=== PATIENT | female | born 2000 | race Caucasian/White ===

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

== ENCOUNTER 2018-10-01 18:58 | Emergency (ER) | payer BC, MEDICAID ==
[~2018-10-01] VITALS: Ht 152.4 cm; Wt 96.4 kg
[~2018-10-01 18:58] MED LIST changes: +IBU800 M1 PO
[2018-10-01 19:03] VITALS: BP 119/69; PULSE 113; TEMP 99.5
== END 2018-10-01 21:25 | disposition left against medical advice (07) ==
LOC: COL.ER 18:58
DX: R05 Cough (principal)

== ENCOUNTER 2019-01-22 11:49 | Outpatient (CLI) | payer BC, MEDICAID ==
[~2019-01-22] VITALS: Ht 154.9 cm; Wt 93.2 kg
[2019-01-22 12:25] VITALS: BP 111/57; PULSE 98
[2019-01-22] MEDS ORDERED: PRENATAL MVI (12:31)
--- NOTE | 2019-01-22 12:40 | NUR ---
1200: Patient ambulatory onto unit with report of large gush of fluid at 0600. Patient states she woke up to her bed being wet. Denies any leaking of fluid after that. Reports good movement, denies cramping/contractions. EFMs on, VS taken. AmniTrace negative. SVE closed/thick/high. 1225: on unit, reviews strip. EFMs off. 1240: Discharge instructions given to patient, return precautions reviewed. Verbalized understanding. Patient ambulatory off of unit at this time.
== END 2019-01-22 12:40 | disposition home or self-care (01) ==
LOC: LDRO 11:49 → LDR 12:00 → LDRO 12:40
DX: Z34.83 Encounter for supervision of other normal pregnancy, third trimester (principal); Z3A.30 30 weeks gestation of pregnancy
CPT/HCPCS: OP

== ENCOUNTER 2019-03-16 16:41 | Outpatient (CLI) | payer BC, MEDICAID ==
[~2019-03-16] VITALS: Ht 154.9 cm; Wt 94.1 kg
[~2019-03-16 16:41] MED LIST changes: +PRENATAL MVI
[2019-03-16 16:53] VITALS: BP 113/71; PULSE 96; TEMP 98.1
[2019-03-16 17:15] VITALS: BP 113/71; PULSE 96; TEMP 98.1
[2019-03-16 17:40] VITALS: BP 120/69; PULSE 87
== END 2019-03-16 17:45 | disposition home or self-care (01) ==
LOC: LDRO 16:41 → LDR 17:38 → LDRO 17:45 → LDR 17:45
DX: O42.92 Full-term premature rupture of membranes, unspecified as to length of time between rupture and onset of labor (principal); Z3A.37 37 weeks gestation of pregnancy
CPT/HCPCS: OP

== ENCOUNTER 2019-03-20 07:27 | Inpatient (IN) | payer BC ==
[~2019-03-20] VITALS: Ht 154.9 cm; Wt 94.5 kg
[2019-03-20] MEDS ORDERED: PRENATAL (18:09)
[2019-03-20] MEDS ORDERED: ZOFRAN ODT4 MG PO (18:09)
[2019-03-20] MEDS ORDERED: TYLENOL 500MG500 MG PO (18:29)
[2019-03-28] VITALS (35 sets, daily range): BP systolic 84–128; BP diastolic 45–81; PULSE 83–133; TEMP 98.3–98.6
--- NOTE | 2019-03-28 13:15 | NUR ---
1315- Pt arrives on unit ambulatory for scheduled induction. Pt, spouse, and mother oriented to room. Pt into bathroom to change into gown, void. 1321- Pt into bed, EFM and TOCO on and tracing. VSS. Assessment completed. 1342- IV started without difficulty, labs obtained, LR bolus initiated. Consent forms explained and signed.
[2019-03-28 14:08] LABS: BASO % 0.1 % (0.0-2.0); EOS # 0.1 (0.0-0.7); EOS % 1.4 % (0-4.0); GRAN # 6.7 (1.4-6.5); GRAN % 70.7 % (42.2-75.2); HEMOGLOBIN 11.1 g/dl (12.0-15.0); LYMPH # 1.9 (1.2-3.4); LYMPH % 20.1 % (20.0-51.0); MEAN CELL VOLUME 87 fl (80.0-95.0); MEAN CORPUSCULAR HEMOGLOBIN 29 pg (26.0-32.0); MEAN CORPUSCULAR HGB CONC 33 g/dl (33.0-37.0); MEAN PLATELET VOLUME 9.5 fl (7.4-10.4); MONO # 0.7 (0.1-0.6); MONO % 7.4 % (1.7-9.3); PLATELET COUNT 288 K/mm3 (130-400); RED BLOOD COUNT 3.88 M/mm3 (4.10-5.30); REDCELL DISTRIBUTION WIDTH-CV 13.1 % (11.5-14.5)
[2019-03-28 14:09] LABS: HEMATOCRIT 33.6 % (35.0-45.0)
--- NOTE | 2019-03-28 16:00 | NUR ---
1541- JET Oliva at bedside for epidural placement. Pt assisted to sitting on side of bed. 1542- O2 sat monitor on and tracing. FHR not tracing well due to maternal position. 1548- Test dose, see anesthesia. Pt tolerated well. 1555- Pt assisted to semi-fowlers with WL. EFM and TOCO adjusted and tracing.
--- NOTE | 2019-03-28 16:30 | NUR ---
1610- Pt complains of sharp pain on right side with UCs. Pt repositioned to RL. Oliva, REFRESH TECHNICIAN called to bedside, epidural dosed, See anesthesia record. 1625- Pt denies pain with UCs.
--- NOTE | 2019-03-28 17:48 | NUR ---
1743- Dr Briceño at bedside. Pt and room prepped for delivery. Huseyin Nursery RN at bedside. 1747- Pt pushes well with UC. Spontaneous delivery of viable female . Infant placed on mother's abd, dried and stimulated, tended to by nursery RN. Pitocin off. Cord clamped and cut. Cord blood obtained. 1751- Spontaneous delivery of placenta. Pitocin restarted at 333 per MD. Fundus massaged to firm by . Perineum found to be intact. Pericare completed and ice pack on. Pt tolerated well.
--- NOTE | 2019-03-28 20:30 | NUR ---
Pt able to lift and hold each leg off of bed for 5 seconds. Pt positioned to sitting on edge. Epidural catheter removed. Tip blue, smooth, and intact. Pt able to ambulate to bathroom independently. Pt able to void 200 mL. Pericare explained and provided. New gown on. Mesh panties, peripad, and ice pack applied. Pt ambulated to room 207 with belongings and spouse.
[2019-03-29 01:30] VITALS: BP 110/65; PULSE 85; TEMP 98.7
[2019-03-29 05:42] VITALS: BP 109/61; BP 110/69; PULSE 77; PULSE 92; TEMP 98.5; TEMP 98.7
[2019-03-29 07:00] VITALS: BP 108/76; PULSE 86; TEMP 98.1
[2019-03-29] MEDS ORDERED: IBU800 M1 PO (07:41)
[2019-03-29 15:40] VITALS: BP 116/74; PULSE 85; TEMP 97.8
== END 2019-03-29 19:30 | disposition home or self-care (01) | DRG 807 ==
LOC: LDR 03-28 10:40 → OB 03-28 20:40 → LDR 03-30 07:26
PROVIDERS: ADMIT Student in an Organized Health Care Education/Training Program
PROC: 10E0XZZ Delivery of Products of Conception, External Approach (ICD-10-PCS; principal; 2019-03-28)
PROC: 10907ZC Drainage of Amniotic Fluid, Therapeutic from Products of Conception, Via Natural or Artificial Opening (ICD-10-PCS; 2019-03-28)
PROC: 3E033VJ Introduction of Other Hormone into Peripheral Vein, Percutaneous Approach (ICD-10-PCS; 2019-03-28)
DX: O99.214 Obesity complicating childbirth (principal); Z37.0 Single live birth; O99.334 Smoking (tobacco) complicating childbirth; Z3A.39 39 weeks gestation of pregnancy; Z23 Encounter for immunization
CPT/HCPCS: OP; J2590; J2795; J7120

== ENCOUNTER 2019-03-20 18:04 | Outpatient (CLI) | payer BC, MEDICAID ==
[~2019-03-20] VITALS: Ht 154.9 cm; Wt 93.6 kg
[2019-03-20 18:05] VITALS: BP 134/77; PULSE 117; TEMP 98.2
[2019-03-20] MEDS ORDERED: PRENATAL (18:09)
[2019-03-20] MEDS ORDERED: ZOFRAN ODT4 MG PO (18:09)
--- NOTE | 2019-03-20 18:10 | NUR ---
1810-G4L2 38.3 WEEK GBS neg Patient of Dr. Aguileraures ambulatory to LR 6 with complaints of decreased movment and sharp back pain starting at Noon. Patient denies leaking of fluid or vaginal bleeding. Denies contractions. Assisted into gown and onto EFM. VSS, see flow record. 1814-SVE /-3, ASHISH. Assessment complete and reported off to Mikael Panda RN who assumes care of patient.
[2019-03-20 18:24] VITALS: BP 134/77; PULSE 117; TEMP 98.2
[2019-03-20] MEDS ORDERED: TYLENOL 500MG500 MG PO (18:29)
[2019-03-20 19:15] VITALS: BP 109/58; PULSE 90
[2019-03-20 20:08] VITALS: BP 109/65; PULSE 96
== END 2019-03-20 20:35 | disposition home or self-care (01) ==
LOC: LDRO 18:04 → LDR 18:10 → LDRO 20:35
DX: O36.8130 Decreased fetal movements, third trimester, not applicable or unspecified (principal); O99.89 Other specified diseases and conditions complicating pregnancy, childbirth and the puerperium; M54.9 Dorsalgia, unspecified; Z3A.38 38 weeks gestation of pregnancy
CPT/HCPCS: OP

== ENCOUNTER 2019-03-25 18:05 | Outpatient (CLI) | payer BC, MEDICAID ==
[~2019-03-25] VITALS: Ht 154.9 cm; Wt 93.6 kg
[~2019-03-25 18:05] MED LIST changes: +PRENATAL; +TYLENOL 500MG500 MG PO; +ZOFRAN ODT4 MG PO
--- NOTE | 2019-03-25 18:05 | NUR ---
1815 G4L2 39.1 WEEK GEST TO LR4 WITH C/O NOT FEELING THE BABY MOVE IN TWO DAYS. EFM AND MOVEMENT FELT AND SEEN IMMEDIATELY. STATES IS HAVING NO CONTRACTIONS. ADM ASSESSMENT COMPLETED. PT STATES HAS ALWAYS BEEN INDUCED AT 39 WEEKS AND THIS TIME IS UNABLE TO BE INDUCED UNTIL 40 WEEKS. WANTS TO KNOW IF I CAN "SWEEP" HER MEMBRANES. INSTUCTED TO KEEP NEXT DRS APPOINTMENT IF ONE SCHEDULED OR INDUCTION APPOINTMENT.
[2019-03-25 18:20] VITALS: BP 106/58; PULSE 115; TEMP 97.9
[2019-03-25 18:33] VITALS: BP 106/58; PULSE 115; TEMP 97.9
--- NOTE | 2019-03-25 18:45 | NUR ---
184 DR HINDS NOTIFIED OF PT AND REPORT GIVEN. ORDERS TO SEND HOME 1899 HOME WITH DISCHARGE INSTRUCTIONS.
== END 2019-03-25 19:00 | disposition home or self-care (01) ==
LOC: LDRO 18:05 → LDR 18:27 → LDRO 19:00
DX: O36.8130 Decreased fetal movements, third trimester, not applicable or unspecified (principal); Z3A.39 39 weeks gestation of pregnancy
CPT/HCPCS: OP

== ENCOUNTER → 2019-03-30 | Outpatient (CLI) | payer BC ==
--- NOTE | 2019-03-30 10:55 | NUR ---
Pt, Debora Zaman, presents for outpatient consult with two day old baby girl, Shaunna Zaman, because she was not been able to Shaunna to wake for feedings in the night despite trying 3 times. She also has sore nipples from shallow latching. Shaunna was born on 03[birth year] by and is Debora's third baby, but is her first breastfed baby. weight was 6#6.8oz (2915 gms). Discharge weight is reported to be 6#3oz. Today Shaunna weighs 6#0.1oz (2726 gms) for a 6% loss from . Pt reports Shaunna has had 2 meconium stools and 3 voids since midnight. She also had a long stretch, [id number], where pt could not get Shaunna to wake enough to latch. At 0600 she nursed about 10 min on one breast and at about 0800 she nursed on each breast for about 10 min. Nursing has been painful as well. Bruises on nipples bilaterally, with soreness greater on the L than R. Abrasions noted on the face of each nipple as well. Breast shells provided to help protect and hopefully matthew nipples better. Pt instructed on pre-stimulating her flat nipple and helping to get Shaunna's chin down with and even adjust after latching. Pt states this maked the latch more comfortable. Pt denies feeling milk supply increase. Occassional swallows are noted, and when Shaunna's effort wanes, pt is instructed on breast compression that results if a few more swallows. After nursing bilaterally Shaunna had a weight gain of 24 gms (0.9oz). She spit up just a small amount that looked like transition milk. POC: Continue on demand or q 3 hours, waking as neccessary. Waking suggestions provided. Use latch suggestions noted above. F/U: Shaunna has an appointment with Dr. George tomorrow. Pt is aware of support group with WIC and at this facility as well. Questions invited and answered.
== END ==
LOC: OLC 10:25
DX: Z39.1 Encounter for care and examination of lactating mother (principal); Z71.89 Other specified counseling

== ENCOUNTER 2020-03-08 14:05 | Outpatient (CLI) | payer BC ==
[~2020-03-08] VITALS: Ht 154.9 cm; Wt 104.5 kg
--- NOTE | 2020-03-08 13:50 | NUR ---
Patient ambulatory to unit accompanied by spouse. Patient states she is feeling abdominal pressure and occasional vaginal pressure and occasional contractions but not consistent. Patient denies any leaking of fluid, vaginal bleeding and states baby has not been as active. FHR and contractions monitors placed and explained. SVE 2. Assessment completed. Dr. Briceño here at 1415 and reviews FHR and contractions on monitors. Report given on patient complaint, vital signs and SVE reported. Orders received for labor check.
[2020-03-08 14:08] VITALS: BP 117/69; PULSE 111; TEMP 98.3
[2020-03-08 14:30] VITALS: PULSE 103
--- NOTE | 2020-03-08 15:00 | NUR ---
Patient resting in bed socializing with her . SVE and no change noted from first SVE. Patient states she really wants to have this baby today. Labor precautions reviewed with patient.
[2020-03-08 15:07] VITALS: BP 112/74; PULSE 89
--- NOTE | 2020-03-08 15:10 | NUR ---
Patient off monitors. Labor precautions reviewed with patient and she verbalizes understanding. Off unit at 1519
== END 2020-03-08 15:15 | disposition home or self-care (01) ==
LOC: LDRO 14:05
DX: O26.893 Other specified pregnancy related conditions, third trimester (principal); Z3A.37 37 weeks gestation of pregnancy

== ENCOUNTER 2020-03-13 02:53 | Inpatient (IN) | payer BC ==
[2020-03-13] VITALS (39 sets, daily range): BP systolic 98–133; BP diastolic 50–83; PULSE 81–112; TEMP 97.7–98.8
[~2020-03-13] VITALS: Ht 154.9 cm; Wt 105.9 kg
--- NOTE | 2020-03-13 02:35 | NUR ---
0235- Pt. ambulatory to the unit by herself, stated was in the car waiting to see if she stayed or not. Stated decreased movement since chest and back pain started an hour and half ago. Stated she has some chest pain that has started to radiate to her back. Denies LOF, and states feel occasional contractions. 0241- EFM and TOCO on and tracing. Vitals taken and assessment completed. SVE 5-6/80/-2. Patient states that since coming onto unit and laying more flat she has had no more chest pain and just a little back pain occasionally but it has gotten better since laying more flat and on her side.
[2020-03-13 04:55] LABS: BASO % 0.2 % (0.0-2.0); EOS # 0.1 (0.0-0.7); EOS % 1.1 % (0-4.0); GRAN # 9.1 (1.4-6.5); GRAN % 73.7 % (42.2-75.2); LYMPH # 2.1 (1.2-3.4); LYMPH % 16.9 % (20.0-51.0); MEAN CELL VOLUME 84 fl (80.0-100.0); MEAN CORPUSCULAR HEMOGLOBIN 27 pg (27.0-31.0); MEAN CORPUSCULAR HGB CONC 32 g/dl (33.0-37.0); MONO % 7.9 % (1.7-9.3); PLATELET COUNT 289 K/mm3 (130-400); RED BLOOD COUNT 4.03 M/mm3 (4.10-5.30); REDCELL DISTRIBUTION WIDTH-CV 13.6 % (11.5-14.5)
[2020-03-13 04:57] LABS: HEMATOCRIT 33.9 % (37.0-47.0)
--- NOTE | 2020-03-13 05:46 | NUR ---
OFF MONITORS AT THIS TIME PER PT REQUEST TO AMBULATE IN THE ROOM.
--- NOTE | 2020-03-13 07:00 | NUR ---
0620- Report received, this RN assumes care of Pt. Pt sitting in rocking chair for comfort. 0639- Pt back in bed, EFM and TOCO on and tracing. VSS. Pt states she was not tricai at all while sitting up.
--- NOTE | 2020-03-13 07:30 | NUR ---
0730- Dr Briceño at nurses station. Reviews strip. VORB to augment with Pitocin per policy.
--- NOTE | 2020-03-13 12:00 | NUR ---
1140- Pt assisted onto birthing ball. EFM adjusted, FHR tracing intermittently. 1155- FHR not tracing well. RN at bedside adjusting. 1205- Pt assisted back into bed, FSE placed by this RN without difficulty, tracing well.
--- NOTE | 2020-03-13 13:00 | NUR ---
1248- SVE by , . Pt encouraged to breathe through UCs, RN remains at bedside. MD to nurses station. Pt not coping with UCs well. 1256- SVE by -. Pt and room prepped for delivery. Pt yelling in pain with UCs. Blas, Nursery RN at bedside. 1300- Pt pushes with UC, of viable male . Placed on mother's abd, tended to by Nursery RN. Pitocin off. Cord clamped and cut. Cord blood obtained. 1304- Spontaneous delivery of placenta. Pitocin restarted at 333ml/hr. Fundus massaged to firm by . Pericare completed, ice pack and clean chux under Pt.
--- NOTE | 2020-03-13 13:15 | NUR ---
1313- Large amount of vaginal bleeding with massage. Many small clots expressed. Fundus firms with massage. 1316- Methergine given per MD MANUEL.
--- NOTE | 2020-03-13 15:10 | NUR ---
1510- Pt ambulates to bathroom independently, voids without difficulty, 150mls. Pericare explained and performed. Pt requests to take shower. Bathroom set up and precautions given. Pt showers without difficulty. 1530- Pt ambulates to nursery independently to watch baby bath. Tolerates well.
[2020-03-14 02:00] VITALS: BP 117/62; PULSE 78; TEMP 98.3
[2020-03-14 07:00] VITALS: BP 115/65; PULSE 83; TEMP 98.3
[2020-03-14] MEDS ORDERED: IBU800 M1 PO (07:33)
[2020-03-14] MEDS ORDERED: PERCOCET 325 MG1 TA2 PO (07:34)
--- NOTE | 2020-03-14 09:02 | NUR ---
Initial visit; Parents thanked Forensic Dna Analyst for offering congratulations and God's blessings for the of their son. Forensic Dna Analyst thanked family for choosing [facility].
[2020-03-14 12:20] VITALS: BP 104/60; PULSE 86; TEMP 98
--- NOTE | 2020-03-14 14:10 | NUR ---
Discharge instructions reviewed with patient and . Script for percocet given and explained. Patient verbalizes understanding of instructions. teaching verbally reviewed with patient. Patient verbalizes understanding. Escorted off unit at 1420.
== END 2020-03-14 14:20 | disposition home or self-care (01) | DRG 807 ==
LOC: LDRO 02:53 → LDR 03:28 → OB 15:15
PROVIDERS: Obstetrics & Gynecology; ADMIT Student in an Organized Health Care Education/Training Program
PROC: 10E0XZZ Delivery of Products of Conception, External Approach (ICD-10-PCS; principal; 2020-03-13)
PROC: 10907ZC Drainage of Amniotic Fluid, Therapeutic from Products of Conception, Via Natural or Artificial Opening (ICD-10-PCS; 2020-03-13)
DX: O99.214 Obesity complicating childbirth (principal); Z37.0 Single live birth; E66.9 Obesity, unspecified; F90.9 Attention-deficit hyperactivity disorder, unspecified type; O70.0 First degree perineal laceration during delivery; O99.334 Smoking (tobacco) complicating childbirth; Z3A.38 38 weeks gestation of pregnancy; O72.1 Other immediate postpartum hemorrhage
CPT/HCPCS: J2210; J2405; J2590; J7120

== ENCOUNTER 2020-05-19 06:40 | Emergency (ER) | payer BC ==
[~2020-05-19] VITALS: Ht 152.4 cm; Wt 97.7 kg
[~2020-05-19 06:40] MED LIST changes: +PERCOCET 325 MG1 TA2 PO
[2020-05-19 06:45] VITALS: TEMP 98.5
[2020-05-19 07:19] LABS: BASO # 0.1 (0.0-0.2); BASO % 0.6 % (0.0-2.0); EOS # 0.2 (0.0-0.7); EOS % 2.4 % (0-4.0); GRAN # 4.2 (1.4-6.5); GRAN % 47.8 % (42.2-75.2); HEMATOCRIT 39.1 % (37.0-47.0); HEMOGLOBIN 12.5 g/dl (12.5-16.0); LYMPH # 3.7 (1.2-3.4); LYMPH % 42.2 % (20.0-51.0); MEAN CELL VOLUME 82 fl (80.0-100.0); MEAN CORPUSCULAR HEMOGLOBIN 26 pg (27.0-31.0); MEAN CORPUSCULAR HGB CONC 32 g/dl (33.0-37.0); MONO # 0.6 (0.1-0.6); MONO % 6.8 % (1.7-9.3); PLATELET COUNT 395 K/mm3 (130-400); RED BLOOD COUNT 4.78 M/mm3 (4.10-5.30); REDCELL DISTRIBUTION WIDTH-CV 13.4 % (11.5-14.5)
[2020-05-19] MEDS ORDERED: NORA-BE0.35 MG PO (07:22)
[2020-05-19 07:28] LABS: ALBUMIN 4.5 gm/dL (3.5-5.0); BILIRUBIN,TOTAL 0.3 mg/dL (0.0-1.0); CALCIUM 9.6 mg/dL (8.4-10.2); CREATININE, serum 0.88 (0.52-1.25); POTASSIUM 3.7 mmol/L (3.4-5.0); TOTAL PROTEIN 7.6 gm/dL (6.4-8.2)
[2020-05-19] MEDS ORDERED: NORCO 325 MG-51 TAB PO ×2 (10:08)
[2020-05-19 10:38] LABS: COLLECTION METHOD CLEAN CATCH
[2020-05-19 10:51] LABS: MUCOUS Present /lpf; PH 6 (5-8); URINE APPEARANCE Hazy; URINE BACTERIA Rare /hpf; URINE BILIRUBIN Negative (NEGATIVE); URINE BLOOD 2+ (NEGATIVE); URINE COLOR Straw; URINE GLUCOSE Negative (NEGATIVE); URINE KETONE Negative (NEGATIVE); URINE LEUKOCYTE ESTERASE Negative (NEGATIVE); URINE NITRATE Negative (NEGATIVE); URINE PROTEIN(semi-quant) Negative (NEGATIVE); URINE RBC 0-2 /hpf; URINE UROBILINOGEN Negative (NEGATIVE)
[2020-05-19 10:55] VITALS: BP 111/77; PULSE 71
== END 2020-05-19 10:55 | disposition home or self-care (01) ==
LOC: COL.ER 06:40
PROVIDERS: Emergency Medicine
DX: K80.70 Calculus of gallbladder and bile duct without cholecystitis without obstruction (principal); Z32.02 Encounter for pregnancy test, result negative
CPT/HCPCS: J2270; J2405; J7120

== ENCOUNTER 2020-05-21 10:42 | Day surgery (SDC) | payer BC ==
[~2020-05-21] VITALS: Ht 152.4 cm; Wt 98.8 kg
[~2020-05-21 10:42] MED LIST changes: +NORA-BE0.35 MG PO; +NORCO 325 MG-51 TAB PO
[2020-05-21 11:57] VITALS: BP 114/58; PULSE 75; TEMP 97.4
[2020-05-21] MEDS ORDERED: ZOLOFT 50MG50 MG PO (12:01)
[2020-05-21 14:02] VITALS: BP 115/79; PULSE 75; TEMP 97.7
--- NOTE | 2020-05-21 14:02 | NUR ---
Patient came back via cart to [facility] bay 4. Alert and oriented. Stacey HAN at bedside. Placed on monitors, vital signs stable. Denies nausea, states pain is 5/10 gas pain to shoulder and chest. Patient requesting applejuice at this time. Patient on the phone with family memebers. Call fagan within reach will continue to monitor.
[2020-05-21 14:15] VITALS: BP 123/76; PULSE 74
--- NOTE | 2020-05-21 14:15 | NUR ---
Patient tolerating drink without difficulty. Vital signs stable. Patient requesting pudding. Mother now at bedside. WIll continue to monitor.
[2020-05-21 14:30] VITALS: BP 135/72; PULSE 68
[2020-05-21 14:34] VITALS: BP 119/70; PULSE 75
--- NOTE | 2020-05-21 14:45 | NUR ---
Patient states she needs to use restroom, ambulated to bathroom with one assist. Urinated without difficulty. Patient states she would like to go home at this time. Pain medication given per orders. IV removed, intact. Patient to get dressed at this time. Will continue to monitor.
--- NOTE | 2020-05-21 14:57 | NUR ---
Discharge instructions reviewed with patient and mother. All questions answered. Follow up appointment given. Patient brought down to lobby via wheel chair. Mother to drive patient home.
--- NOTE | 2020-05-21 15:15 | NUR ---
Belongings found in patient room. Patient called, will come back to patient entrance and hand picker. Belongings labeled with sticker, left at patient entrance.
== END 2020-05-21 15:05 | disposition home or self-care (01) ==
LOC: SDCO 10:42
DX: K80.10 Calculus of gallbladder with chronic cholecystitis without obstruction (principal); E66.9 Obesity, unspecified; F17.210 Nicotine dependence, cigarettes, uncomplicated; Z79.899 Other long term (current) drug therapy
CPT/HCPCS: J2405; J2704; J3010; J7120

== ENCOUNTER 2021-06-16 22:17 | Outpatient (CLI) | payer OTHER, MEDICAID ==
[~2021-06-16] VITALS: Ht 154.9 cm; Wt 105.7 kg
[~2021-06-16 22:17] MED LIST changes: +ZOLOFT 50MG50 MG PO
--- NOTE | 2021-06-16 22:47 | NUR ---
2225: PT. AMBULATORY TO UNIT FOR C/O OF DECREASED MOVEMENT. UPON ARRIVAL, ORIENTED TO LR3, CLEAN GOWN ON, EFM/TOCO APPLIED, VS OBTAINED, ASSESSMENTS COMPLETED. QUESTIONS INVITED AND ASKED. DISCUSSED POC AND WILL CONT TO MONITOR
[2021-06-16] MEDS ORDERED: TYLENOL 500MG500 MG PO (22:54)
[2021-06-16 23:00] VITALS: BP 124/80; PULSE 115; TEMP 99.5
[2021-06-16 23:15] VITALS: PULSE 107
--- NOTE | 2021-06-16 23:29 | NUR ---
FHT 2300: BROKEN STRIP NOTED; RN AT TO ADJUST EFM 2315: BROKEN STRIP NOTED
--- NOTE | 2021-06-16 23:30 | NUR ---
RN GAVE REPORT TO GUILLE RAMIREZ AT 4755. CARE RELINQUISHED AT THIS TIME
[2021-06-16 23:45] VITALS: PULSE 110
--- NOTE | 2021-06-17 00:26 | NUR ---
DISMISSED AMBULATORY IN STABLE CONDITION
--- NOTE | 2021-06-17 00:27 | NUR ---
DISCHARGE INSTRUCTIONS GIVEN, WITH EARLY LABOR SIGNS, AND DECREASED MOVEMENT INSTRUCTIONS REVIEWED, VOICES GOOD UNDERSTANDING
--- NOTE | 2021-06-17 00:31 | NUR ---
COVID SWAB RESULTS NEGATIVE, EFM OFF AT THIS TIME
== END 2021-06-17 00:23 | disposition home or self-care (01) ==
LOC: LDRO 22:17 → LDR 22:25 → LDRO 06-17 00:23
DX: O36.8190 Decreased fetal movements, unspecified trimester, not applicable or unspecified (principal); Z3A.00 Weeks of gestation of pregnancy not specified
CPT/HCPCS: OP

== ENCOUNTER 2021-07-10 11:11 | Outpatient (CLI) | payer OTHER, MEDICAID ==
[~2021-07-10] VITALS: Ht 152.4 cm; Wt 105.0 kg
[2021-07-10 11:30] VITALS: BP 108/69; PULSE 112; TEMP 98.2
--- NOTE | 2021-07-10 11:30 | NUR ---
1120- Pt arrives on unit ambulatory for labor check. Pt complains of intermittent, irregular cramping and centeral upper gastric pain. Pt changes into gown. 1122- Pt into bed, EFM and TOCO on and tracing. VSS. Pt denies VB or contractions. Pt had called unit last night thinking water may have broke. After monitoring at home she had no additional leakage. +FM per Pt and heard on monitor by this RN. Assessments completed. 1142- Amniotrace negative. SVE /3 which is unchanged from last office visit on 10/06/2020.
[2021-07-10] MEDS ORDERED: PRENATAL TABLET PO (11:34)
[2021-07-10] MEDS ORDERED: MONISTAT VG (11:35)
[2021-07-10] MEDS ORDERED: PROAIR DIGIHAL90 MCG (11:35)
[2021-07-10 11:55] VITALS: BP 106/62; PULSE 109
--- NOTE | 2021-07-10 11:55 | NUR ---
1155- EFM and TOOC off. Discharge paperwork given and explained. Pt denies questions at this time. Pt ambulates off unit in stable condition.
== END 2021-07-10 12:00 | disposition home or self-care (01) ==
LOC: LDRO 11:11 → LDR 11:20 → LDRO 12:00
DX: O26.893 Other specified pregnancy related conditions, third trimester (principal); R25.2 Cramp and spasm; Z3A.35 35 weeks gestation of pregnancy
CPT/HCPCS: OP

== ENCOUNTER 2021-07-18 18:20 | Outpatient (CLI) | payer OTHER, MEDICAID ==
[~2021-07-18] VITALS: Ht 152.4 cm; Wt 105.9 kg
[~2021-07-18 18:20] MED LIST changes: +MONISTAT VG; +PRENATAL TABLET PO; +PROAIR DIGIHAL90 MCG
[2021-07-18 19:00] VITALS: BP 116/65; PULSE 100; TEMP 99.6
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
--- NOTE | 2021-07-18 20:10 | NUR ---
1920 - 20 G TO LEFT FOREARM X1 ATTEMPT, LR BOLUS INFUSING TO GRAVITY
--- NOTE | 2021-07-18 20:58 | NUR ---
UP TO BATHROOM, EFM OFF AT THIS TIME. IV FLUIDS CONTINUE TO INFUSE
--- NOTE | 2021-07-18 21:09 | NUR ---
DISCHARGE INSTRUCTIONS REVIEWED WITH PT, VOICES GOOD UNDERSTANDING. IV FLUIDS INFUSED. IV SITE DC'D, CATHETER INTACT, PRESSURE DSG APPLIED
--- NOTE | 2021-07-18 21:13 | NUR ---
2111 - DISMISSED AMBULATORY WITH MOTHER IN STABLE CONDITION
== END 2021-07-18 21:12 | disposition home or self-care (01) ==
LOC: LDRO 18:20 → LDR 18:49 → LDRO 21:12
DX: O26.893 Other specified pregnancy related conditions, third trimester (principal); R11.2 Nausea with vomiting, unspecified; Z3A.36 36 weeks gestation of pregnancy
CPT/HCPCS: OP; J2405; J7120

== ENCOUNTER 2021-07-30 19:52 | Outpatient (CLI) | payer OTHER, MEDICAID ==
[~2021-07-30] VITALS: Ht 152.4 cm; Wt 105.0 kg
--- NOTE | 2021-07-30 20:00 | NUR ---
records reviewed after pt called in reporting she was coming in. records note pt was Covid +01/21/2021 and 04/29/2021 and now daughter has had an exposure to Covid + person. Pt has not received any Covid vaccinations. Ambulatory to unit with Mother for assesment, using side entrance and taken into LR 1, placed in Isolation and Rapid Covid Swab obtained and sent to lab. Pt reports irregular contractions since yesterday 07/29/21 stating "they just seem stronger tonight" Denies LOF or vaginal bleeding. SVE as noted with no changes from last SVE at office 07/22.
[2021-07-30 20:30] VITALS: BP 107/65; PULSE 91; TEMP 98.4
== END 2021-07-30 21:25 | disposition home or self-care (01) ==
LOC: LDRO 19:52 → LDR 20:39 → LDRO 21:25
DX: Z20.822 Contact with and (suspected) exposure to COVID-19 (principal)
CPT/HCPCS: OP

== ENCOUNTER 2021-08-01 02:55 | Inpatient (IN) | payer OTHER, MEDICAID ==
[2021-08-01] VITALS (31 sets, daily range): BP systolic 83–130; BP diastolic 37–78; PULSE 77–125; TEMP 97.9–99
[~2021-08-01] VITALS: Ht 154.9 cm; Wt 104.5 kg
[2021-08-01] MEDS ORDERED: LEXAPRO 5MG5 MG PO (03:33)
--- NOTE | 2021-08-01 03:45 | NUR ---
8555-1670: Difficulty tracing contraction due to maternal size. Palpate firm with relaxation. TOCO adjusted multiple times.
[2021-08-01 03:51] LABS: BASO % 0.2 % (0.0-2.0); EOS # 0.1 K/mm3 (0.0-0.7); GRAN # 9.9 K/mm3 (1.4-6.5); GRAN % 75.2 % (42.2-75.2); LYMPH # 2.4 K/mm3 (1.2-3.4); LYMPH % 17.9 % (20.0-51.0); MEAN CELL VOLUME 82 fl (80.0-100.0); MEAN CORPUSCULAR HEMOGLOBIN 28 pg (27-31); MEAN CORPUSCULAR HGB CONC 34 g/dl (33.0-37.0); MEAN PLATELET VOLUME 9.9 fl (7.4-10.4); MONO # 0.7 K/mm3 (0.1-0.6); MONO % 5.4 % (1.7-9.3); PLATELET COUNT 294 K/mm3 (130-400); REDCELL DISTRIBUTION WIDTH-CV 14.4 % (11.5-14.5)
[2021-08-01 03:52] LABS: HEMATOCRIT 35.3 % (37.0-47.0)
--- NOTE | 2021-08-01 03:58 | NUR ---
0358: Nato CHAUDHARY at bedside for epidural placement. Procedure explained. Pt assited to edge of bed. Difficulty tracing FHR due to maternal position. Pulse ox applied and tracing. 0402: Single shot administered by Nato CHAUDHARY. See anesthesia records. 0413: Pt assisted to wed right position. Plan of care and safety precautions explained. Pt and spouse verbalize their understanding. Call light within reach.
--- NOTE | 2021-08-01 04:00 | NUR ---
20 YO AT 38.6 WKS GESTATION TO LR6 WITH C/O CTXS TONIGHT THAT HAVE GOTTEN STRONGER AND CLOSER TOGETHER, ALSO REPORTS BLOODY SHOW, BUT DENIES LEAKING ANY FLUID. REPORTS GOOD ACTIVITY TODAY
--- NOTE | 2021-08-01 08:22 | NUR ---
0822- Dr. Briceño to patient bedside and reviews plan of care with patient and family. AROM at this time by Dr. Briceño for moderate amount clear flulid. SVE per provider 9-10cm. Yusra care provied and patient high fowlers. 0835- Patient calls RN to room and reports increased rectal pressure and urge to push. SVE 10/100/+2. 0836- Dr. Briceño on unit and notified. See physician notification. 0837- Dr. Briceño at bedside. Patient repositioned in footplates and instructed on pushing. 0840- Patient begins pushing with contraction with Dr. Briceño and RN at bedside. Spontaneous vaginal delivery of viable female . NC x1 reduced on perineum. to mother's chest where dried and stimulated by nursery RN. 0842- Cord clamped x2 and cut by father of . Care of assumed by Zack Garcia RN. 0844- Spontaneous and intact delivery of placenta. Pitocin to 333ml/hr per protocol. Perineum intact. Yusra care provided, pads changed. Fundus firm, midline, bleeding minimal. Plan of care and safety precautions reviewed. See doctor dictation, anesthesia record, and nurses notes.
[2021-08-02 03:30] VITALS: BP 130/80; PULSE 94; TEMP 99.2
[2021-08-02 08:30] VITALS: BP 119/72; PULSE 72; TEMP 97.8
[2021-08-02] MEDS ORDERED: IBU800 M1 PO (10:13)
--- NOTE | 2021-08-02 13:01 | NUR ---
Walking Dragline Oiler stopped by and nothing needed at this time.
[2021-08-02 16:30] VITALS: BP 129/79; PULSE 90; TEMP 97.8
--- NOTE | 2021-08-02 18:30 | NUR ---
Report recieved. Just returned on the unit from a "walk." POC reviewed and whiteboard updated.
[2021-08-02 20:30] VITALS: BP 138/81; PULSE 87; TEMP 98.4
[2021-08-03 08:00] VITALS: BP 123/72; PULSE 78; TEMP 97.3
== END 2021-08-03 11:00 | disposition home or self-care (01) | DRG 807 ==
LOC: LDRO 02:55 → LDR 03:22 → OB 11:00
PROVIDERS: Obstetrics & Gynecology; ADMIT Student in an Organized Health Care Education/Training Program
PROC: 10E0XZZ Delivery of Products of Conception, External Approach (ICD-10-PCS; principal; 2021-08-01)
PROC: 10907ZC Drainage of Amniotic Fluid, Therapeutic from Products of Conception, Via Natural or Artificial Opening (ICD-10-PCS; 2021-08-01)
DX: O99.214 Obesity complicating childbirth (principal); Z37.0 Single live birth; O99.344 Other mental disorders complicating childbirth; F32.A Depression, unspecified; F90.9 Attention-deficit hyperactivity disorder, unspecified type; O69.81X0 Labor and delivery complicated by cord around neck, without compression, not applicable or unspecified; Z20.822 Contact with and (suspected) exposure to COVID-19; Z3A.38 38 weeks gestation of pregnancy
CPT/HCPCS: J2405; J2590; J7120